=== PATIENT | female | born 1980 | race Caucasian/White ===

== ENCOUNTER 2018-09-04 17:03 | Emergency (ER) | payer SELFPAY ==
[~2018-09-04] VITALS: Ht 172.7 cm; Wt 65.8 kg
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
--- NOTE | 2018-09-04 17:16 | NUR ---
PT WAS WORRIED THAT SHE WOULD BE KEPT IN THE HOSPITAL SHE HAS TO FLY TO [place] ON THE 12 OF SEPTEMBER.
--- NOTE | 2018-09-04 17:35 | NUR ---
CALLED PT'S EX , OSIRIS LARA, AT . PT WOULD LIKE OSIRIS TO COME TO THE HOSPITAL AND TAKE HER HOME. OSIRIS WAS DRIVING AND STATED THAT HE WOULD CALL ME BACK. PT WAS NOTIFIED.
--- NOTE | 2018-09-04 17:37 | NUR ---
LEIGHTON VERGARA IS AT THE BEDSIDE FOR BLOOD DRAW. PT IS TIRED, BUT STATED THAT SHE COULD GIVE A URINE SAMPLE SOON.
[2018-09-04 17:44] LABS: BASOPHILS % (AUTO) 0.7 % (0.0-2.0); EOSINOPHILS % (AUTO) 0.1 % (0.0-6.0); HEMATOCRIT 38 % (33-45); HEMOGLOBIN 12.7 g/dL (11.5-14.8); LYMPHOCYTES # (AUTO) 1.4 /CMM (0.8-4.8); MEAN CORPUSCULAR HGB CONC 33 g/dl (31.0-36.0); MEAN CORPUSCULAR VOLUME 92 fL (82-100); MONOCYTES # (AUTO) 0.5 /CMM (0.1-1.30); MONOCYTES % (AUTO) 9.8 % (2.0-12.0); NEUTROPHILS # (AUTO) 2.8 /CMM (1.8-8.9); NEUTROPHILS % (AUTO) 60.4 % (43.0-81.0); PLATELET COUNT (AUTO) 298 /CMM (150-450); RED BLOOD CELL COUNT(AUTO) 4.14 MIL/uL (4.0-5.2); WHITE BLOOD COUNT (AUTO) 4.7 K/uL (4.3-11.0)
--- NOTE | 2018-09-04 17:50 | NUR ---
PT'S EX , OSIRIS, CALLED BACK AND TOLD ME THAT HE IS ESTRANGED FROM [facility] AND IS NOT THE PERSON TO PICK HER UP AND TAKE HER HOME. HE STATED THAT THE PT'S FATHER WILL BE COMING TO [place] NEXT WEEK TO TAKE HER BACK TO [place].
[2018-09-04 17:51] LABS: CALCIUM, SERUM 8.5 mg/dL (8.5-10.1); CARBON DIOXIDE 26 mmol/L (21-32); CHLORIDE 104 mmol/L (98-107); CREATININE 0.6 mg/dL (0.6-1.3); GLUCOSE 134 mg/dL (74-106); POTASSIUM 3.7 mmol/L (3.5-5.1); SODIUM SERUM 141 mmol/L (136-145); UREA NITROGEN, BLOOD 16 mg/dL (7-18)
[2018-09-04 17:58] LABS: ACETAMINOPHEN < 2 ug/ml (10-30); ALANINE AMINOTRANSFERASE 46 U/L (12-78); ALBUMIN 3.6 g/dL (3.4-5.0); ALCOHOL, BLOOD 412 mg/dL (0-0); ALKALINE PHOSPHATASE 56 U/L (46-116); ASPARTATE AMINOTRANSFERASE 47 U/L (15-37); BILIRUBIN,DIRECT 0.1 mg/dL (0.0-0.2); BILIRUBIN,TOTAL 0.3 mg/dL (0.2-1.0); SALICYLATE < 2.8 mg/dL (2.8-20.0); TOTAL PROTEIN, SERUM 7.1 g/dL (6.4-8.2)
--- NOTE | 2018-09-04 18:00 | NUR ---
PT AMBULATED TO THE BATHROOM WITH A STEADY GAIT. URINE SAMPLE WAS OBTAINED.
--- NOTE | 2018-09-04 18:10 | NUR ---
CALLED PT'S FRIEND HEATHER AND LEFT A MESSAGE FOR HER TO CALL ME BACK.
--- NOTE | 2018-09-04 18:15 | NUR ---
PT WAS ASKING FOR FOOD. A DINNER TRAY WAS GIVEN TO THE PT AND PT IS TOLERATING PO WELL.
[2018-09-04 18:37] LABS: APPEARANCE,URINE Clear (CLEAR); BILIRUBIN,URINE Negative (NEGATIVE); BLOOD, URINE Trace-lysed Ery/uL (NEGATIVE); COLOR,URINE Yellow (YELLOW); KETONES,URINE 15 (NEGATIVE); LEUKOCYTE ESTERASE ,URINE Negative (NEGATIVE); NITRITE, URINE Negative (NEGATIVE); PH,URINE 5.5 (5.0-8.0); PROTEIN,URINE Trace mg/dl (NEGATIVE); UGLUCOSE Negative (NEGATIVE); UROBILINOGEN,URINE 0.2 EU/dL (0.2)
[2018-09-04 18:38] LABS: BACTERIA,URINE None seen /HPF (None Seen); SQUAMOUS EPITHELIAL CELL,UR Few /HPF (None Seen); WBC,URINE 0-2 /HPF (0-3)
--- NOTE | 2018-09-04 19:10 | NUR ---
PT APPEARS TO BE RESTING COMFORTABLY WITH NO S/S OF PAIN OR DISTRESS.
--- NOTE | 2018-09-04 19:10 | NUR ---
PT REMOVED BP CUFF AND PULSE OX. PT DOES NOT WANT THEM ON. WILL MONITOR THE PT.
--- NOTE | 2018-09-04 19:20 | NUR ---
PT APPEARS TO BE SLEEPING SOUNDLY WITH NO S/S OF PAIN OR DISTRESS.
--- NOTE | 2018-09-04 21:30 | NUR ---
PT APPEARS TO BE SLEEPING SOUNDLY WITH NO S/S OF PAIN OR DISTRESS WILL CONTINUE TO MONITOR THE PT. PT REMOVED ALL MONITOR LEADS.
--- NOTE | 2018-09-04 22:45 | NUR ---
PT APPEARS TO BE SLEEPING WITH NAD NOTED. PT WILL CONTINUE TO BE MONITORED.
--- NOTE | 2018-09-05 00:57 | NUR ---
PT IS SLEEPING SOUNDLY WITH NO S/S OF PAIN OR DISTRESS. WILL CONTINUE TO MONITOR THE PT.
[2018-09-05] MEDS ORDERED: ACETAMINOPHEN ES 500 MG TABLET ONE (01:27)
[2018-09-05] MEDS ORDERED: ACETAMINOPHEN ES 500 MG TABLET PO ONE (01:30)
--- NOTE | 2018-09-05 01:34 | NUR ---
PT IS AWAKE AND C/O A HEADACHE. MD NOTIFIED AND NEW ORDERS WERE GIVEN AND CARRIED OUT.
--- NOTE | 2018-09-05 03:11 | NUR ---
DR MICHEL IS AT THE BEDSIDE REMOVING PT'S LT UPPER EYE/EYEBROW SUTURES. IV removed. Catheter intact and site benign. Pressure and 4x4 applied to site. No bleeding noted. Patient discharged to home in stable condition. Written and verbal after care instructions given. Patient verbalizes understanding of instruction. PT WAS TOLD TO TRY AND GET INTO AN ALCOHOL REHAB. PT IS GOING TO [place] NEXT WEEK. PT IS TAKING AN UBER HOME. PT IS AMBULATORY WITH A STEADY GAIT. VSS.
[2018-09-05 03:13] VITALS: BP 116/82
== END 2018-09-05 03:14 | disposition home or self-care (01) ==
LOC: ER 17:05
DX: F10.129 Alcohol abuse with intoxication, unspecified (principal); Y90.8 Blood alcohol level of 240 mg/100 ml or more; Y08.89XA Assault by other specified means, initial encounter; Y93.89 Activity, other specified; Y92.89 Other specified places as the place of occurrence of the external cause; Y99.8 Other external cause status
CPT/HCPCS: 36415; 80048; 80076; 80305; 80307; 80329; 81001; 84703; 85025; 99283; G0480; 81000-TC

== ENCOUNTER 2018-09-06 20:44 | Emergency (ER) | payer BC ==
[~2018-09-06] VITALS: Ht 167.6 cm; Wt 66.7 kg
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
[2018-09-06] MEDS ORDERED: IV NS 0.9% 1,000 ML BAG IV ONE ×2 (21:00→22:00)
[2018-09-06 21:02] LABS: BASOPHILS % (AUTO) 0.9 % (0.0-2.0); EOSINOPHILS % (AUTO) 1.5 % (0.0-6.0); HEMATOCRIT 38 % (33-45); HEMOGLOBIN 12.6 g/dL (11.5-14.8); LYMPHOCYTES # (AUTO) 2.6 /CMM (0.8-4.8); LYMPHOCYTES % (AUTO) 58.8 % (20.0-44.0); MEAN CORPUSCULAR HGB CONC 33 g/dl (31.0-36.0); MEAN CORPUSCULAR VOLUME 92 fL (82-100); MONOCYTES # (AUTO) 0.4 /CMM (0.1-1.30); MONOCYTES % (AUTO) 9.3 % (2.0-12.0); NEUTROPHILS # (AUTO) 1.3 /CMM (1.8-8.9); NEUTROPHILS % (AUTO) 29.5 % (43.0-81.0); PLATELET COUNT (AUTO) 240 /CMM (150-450); WHITE BLOOD COUNT (AUTO) 4.4 K/uL (4.3-11.0)
[2018-09-06 21:09] LABS: CALCIUM, SERUM 7.8 mg/dL (8.5-10.1); CARBON DIOXIDE 29 mmol/L (21-32); CHLORIDE 112 mmol/L (98-107); CREATININE 0.5 mg/dL (0.6-1.3); GLUCOSE 83 mg/dL (74-106); POTASSIUM 3.4 mmol/L (3.5-5.1); SODIUM SERUM 152 mmol/L (136-145); UREA NITROGEN, BLOOD 11 mg/dL (7-18)
--- NOTE | 2018-09-06 21:10 | NUR ---
URINE COLLECTED, F/C INPLACE, URINE SENT TO LAB.
[2018-09-06 21:17] LABS: ACETAMINOPHEN 0 ug/ml (10-30); ALANINE AMINOTRANSFERASE 85 U/L (12-78); ALBUMIN 3.5 g/dL (3.4-5.0); ALCOHOL, BLOOD 447 mg/dL (0-0); ALKALINE PHOSPHATASE 52 U/L (46-116); ASPARTATE AMINOTRANSFERASE 129 U/L (15-37); BILIRUBIN,DIRECT 0.1 mg/dL (0.0-0.2); BILIRUBIN,TOTAL 0.4 mg/dL (0.2-1.0); LIPASE 156 U/L (73-393); TOTAL PROTEIN, SERUM 6.7 g/dL (6.4-8.2)
[2018-09-06 21:18] LABS: SALICYLATE 0.5 mg/dL (2.8-20.0)
[2018-09-06 21:22] LABS: APPEARANCE,URINE Clear (CLEAR); BILIRUBIN,URINE Negative (NEGATIVE); BLOOD, URINE Trace-intact Ery/uL (NEGATIVE); COLOR,URINE Yellow (YELLOW); KETONES,URINE Negative (NEGATIVE); LEUKOCYTE ESTERASE ,URINE Negative (NEGATIVE); NITRITE, URINE Negative (NEGATIVE); PROTEIN,URINE Negative (NEGATIVE); UGLUCOSE Negative (NEGATIVE); UROBILINOGEN,URINE 0.2 EU/dL (0.2)
[2018-09-06 21:26] LABS: BACTERIA,URINE None seen /HPF (None Seen); RBC,URINE 0-2 /HPF (0-2); SQUAMOUS EPITHELIAL CELL,UR Few /HPF (None Seen); WBC,URINE NONE SEEN /HPF (0-3)
--- NOTE | 2018-09-06 21:40 | NUR ---
PT BEING WHEELED TO RADIOLOGY ON [facility]
--- NOTE | 2018-09-06 21:40 | NUR ---
CHERELLE [phone]
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
--- NOTE | 2018-09-06 22:38 | NUR ---
PT AWAKE. INTOXICATED. MD NOTIFIED PT IS ALREADY AWAKE. NAD, BREATHING EVEN AND UNLABORED. PT ASKED TO HAVE HER CALLED, NO ANSWER BY .
--- NOTE | 2018-09-07 01:07 | NUR ---
PT IN BED SLEEPINF. NAD, BREATHING EVEN AND UNLABORED
--- NOTE | 2018-09-07 03:13 | NUR ---
pt asked for water. swallow eval done prior. pt passed swallow eval. md notified.
--- NOTE | 2018-09-07 04:07 | NUR ---
pt is awake. nad, breathing even and unlabored. pt asked for food and water. given sandwhich and water. tolerating po intake well.
--- NOTE | 2018-09-07 05:48 | NUR ---
INDWELING F/C DISCONTINUED. NOTED 1250ML URINE OUTPUT SINCE INSERTION. URINE YELLOW AND CLEAR. AWARE.
--- NOTE | 2018-09-07 06:45 | NUR ---
PT AMBULATED WITH SBA AROUND THE UNIT. PT TOLERATED AMBULATION. PT ALSO WENT TO BATHROOM AND REPORTED THAT SHE VOIDED.
--- NOTE | 2018-09-07 07:06 | NUR ---
BELONGINGS KEPT IN THE RN SUP OFFICE SAFE RETURNED TO PT.
--- NOTE | 2018-09-07 07:29 | NUR ---
Patient discharged to home in stable condition. Written and verbal after care instructions given. Patient verbalizes understanding of instruction.IV removed. Catheter intact and site benign. Pressure and 4x4 applied to site. No bleeding noted. Pt ambulatory with a steady gait
[2018-09-07 07:30] VITALS: BP 112/62
== END 2018-09-07 07:30 | disposition home or self-care (01) ==
LOC: ER 20:46
DX: T51.8X1A Toxic effect of other alcohols, accidental (unintentional), initial encounter (principal); G93.40 Encephalopathy, unspecified; F10.20 Alcohol dependence, uncomplicated; R41.82 Altered mental status, unspecified; Y90.8 Blood alcohol level of 240 mg/100 ml or more; Y92.89 Other specified places as the place of occurrence of the external cause
CPT/HCPCS: 36415; 51702; 70450; 71045; 80048; 80076; 80305; 80307; 80329; 81001; 83690; 84484; 84703; 85025; 93005; 96360; 96361; 99284; G0480; J7030 ×3; 81000-TC